=== PATIENT | male | born 1965 | race Caucasian/White ===

== ENCOUNTER 2017-05-14 08:53 | Emergency (ER) | payer SELFPAY ==
[~2017-05-14] VITALS: Ht 177.8 cm; Wt 90.9 kg
[2017-05-14] MEDS ORDERED: ALLO100T PO (08:55)
[2017-05-14] MEDS ORDERED: DEXAMETHASONE SOD PHOS 4 MG/ML 5 ML VIAL IM ONE (10:00)
[2017-05-14] MEDS ORDERED: COLCHICINE 0.6 MG TABLET PO ONE (10:00)
[2017-05-14] MEDS ORDERED: NAPROXEN 250 MG TABLET PO ONE (10:00)
[2017-05-14] MEDS ORDERED: HYDROCODONE/ACETAMINOPHEN 5-325 MG TABLET PO ONE (10:00)
[2017-05-14 10:42] VITALS: BP 141/89
== END 2017-05-14 10:50 | disposition home or self-care (01) ==
LOC: EMS 08:56
DX: M10.9 Gout, unspecified (principal); M79.671 Pain in right foot; R03.0 Elevated blood-pressure reading, without diagnosis of hypertension
CPT/HCPCS: 96372; 99284; J1100